=== PATIENT | female | born 1955 | race Two or more races ===

== ENCOUNTER 2025-03-21 20:34 | Emergency (ER) | payer OTHER ==
[~2025-03-21] VITALS: Ht 160 cm; Wt 53.5 kg
[2025-03-21] MEDS ORDERED: KEPPRA500 MG PO (20:45)
[2025-03-21] MEDS ORDERED: TRAMADOL HCL 50 MG TABLET PO ONE (21:45)
== END 2025-03-21 23:32 | disposition home or self-care (01) ==
LOC: ER 20:34
DX: S62.101A Fracture of unspecified carpal bone, right wrist, initial encounter for closed fracture (principal); W19.XXXA Unspecified fall, initial encounter; Y93.89 Activity, other specified; Y92.832 Beach as the place of occurrence of the external cause; Y99.8 Other external cause status